=== PATIENT | female | born 1965 | race African-American/Black ===

== ENCOUNTER 2017-01-18 12:19 | Emergency (ER) | payer SELFPAY ==
[~2017-01-18] VITALS: Ht 149.9 cm; Wt 104.3 kg
[2017-01-18 15:12] VITALS: BP 135/88
[2017-01-18] MEDS ORDERED: IBUPROFEN 800 MG TAB PO ONE (15:45)
== END 2017-01-18 16:51 | disposition home or self-care (01) ==
LOC: ER 12:19
DX: M17.11 Unilateral primary osteoarthritis, right knee (principal); I10 Essential (primary) hypertension; Z88.6 Allergy status to analgesic agent; Z88.8 Allergy status to other drugs, medicaments and biological substances; X58.XXXA Exposure to other specified factors, initial encounter; Y93.89 Activity, other specified; Y92.89 Other specified places as the place of occurrence of the external cause; Y99.8 Other external cause status
CPT/HCPCS: 73562